=== PATIENT | female | born 1970 | race Caucasian/White ===

== ENCOUNTER 2017-01-18 13:46 | Emergency (ER) | payer OTHER ==
[2017-01-18] MEDS ORDERED: SODIUM CHLORIDE 0.9% 1000 ML INFUS.BAG IV ONE (14:37)
[2017-01-18] MEDS ORDERED: METOCLOPRAMIDE HCL INJECTION 10 MG/2 ML VIAL IVPB ONE (14:37)
[2017-01-18] MEDS ORDERED: KETOROLAC TROMETHAMINE 30 MG/1 ML VIAL IVPUSH ONE (14:37)
[2017-01-18] MEDS ORDERED: KETOROLAC TROMETHAMINE 30 MG/1 ML VIAL ONE (14:38)
[2017-01-18] MEDS ORDERED: METOCLOPRAMIDE HCL INJECTION 10 MG/2 ML VIAL ONE (14:38)
[2017-01-18 14:47] VITALS: TEMP 97.9; BMI 25.0
[2017-01-18 14:51] LABS: BASOPHIL 0.9 % (0-2.0); EOSINOPHIL 1.6 % (0-4.5); MCH 26.8 pg (25.7-33.7); MCHC 31.8 g/dl (32.0-36.0); MEAN CELL VOLUME 84.2 fl (80-96); MEAN PLT VOLUME 8.3 fl (7.5-11.1); NEUTROPHILS 65.6 % (42.8-82.8); PLATELET COUNT 253 K/MM3 (134-434); RDW 15.1 % (11.6-15.6); WHITE BLOOD COUNT 3.7 K/mm3 (4.0-10.0)
[2017-01-18 15:14] LABS: ALBUMIN 3.8 g/dl (3.4-5.0); ANION GAP 8 (8-16); BILIRUBIN,TOTAL 0.4 mg/dL (0.2-1.0); CO2 27 mmol/L (21-32); COCKROFT - GAULT 123.1565; CREATININE 0.6 mg/dL (0.55-1.02); GLUCOSE,RANDOM 100 mg/dL (74-106); SGOT/AST 25 U/L (15-37); SGPT/ALT 28 U/L (12-78); TOT PROT 7.6 g/dl (6.4-8.2)
[2017-01-18 15:15] LABS: ALK PHOS 80 U/L (45-117)
--- NOTE | 2017-01-18 16:20 | PDOC ---
History of Present Illness - General Chief Complaint: Nausea/Vomiting Stated Complaint: VOMITING/HEADACHE Time Seen by Provider: 01/18/17 14:14 - History of Present Illness Initial Comments: 01/18/17 16:14 CHIEF COMPLAINT: vomiting/diarrhea HISTORY OF PRESENT ILLNESS: 46 yo F with hx of hypothyroidism presents to ED with vomiting and headache since yesterday. She states "I ate shrimp last night , and afterwards I started to feel bad." She states that she vomiting approximately 4 times and today she has a headache. She denies any fever, chills, diarrhea, rectal bleeding, or urinary symptoms. LMP was two weeks ago, last bowel movement was yesterday and was normal. No recent travel or sick contacts. PAST MEDICAL HISTORY: as per HPI FAMILY HISTORY: Denies SOCIAL HISTORY: Denies tobacco, alcohol, illicit drug use. SURGICAL HISTORY: Denies ALLERGIES: No known drug allergies REVIEW OF SYSTEMS General/Constitutional: Denies fever or chills. Denies weakness, weight change. HEENT: Denies change in vision. Denies ear pain or discharge. Denies sore throat. Cardiovascular: Denies chest pain or shortness of breath. Respiratory: Denies cough, wheezing, or hemoptysis. Gastrointestinal: Vomiting last night. Denies diarrhea or constipation. Denies rectal bleeding. Genitourinary: Denies dysuria, frequency, or change in urination. Musculoskeletal: Denies joint or muscle swelling or pain. Denies neck or back pain. Skin and breasts: Denies rash or easy bruising. PHYSICAL EXAM General Appearance: Well-appearing, appropriately dressed. No apparent distress. HEENT: EOMI, PERRLA, normal ENT inspection, normal voice, TMs normal, pharynx normal. No conjunctival pallor. No photophobia, scleral icterus. Respiratory/Chest: Lungs CTAB. Cardiovascular: RRR. S1, S2. Gastrointestinal/Abdominal: Normal bowel sounds. Abdomen soft, non-distended. No tenderness or rebound tenderness. No organomegaly, pulsatile mass, guarding , hernia, hepatomegaly, splenomegaly. Musculoskeletal/Extremities: Normal inspection. FROM of all extremities, normal capillary refill. Pelvis Stable. No CVA tenderness. No tenderness to extremities, pedal edema, swelling, erythema or deformity. Integumentary: Appropriate color, dry, warm. No cyanosis, erythema, jaundice or rash Neurologic: set up mechanic automatic line II-XII intact. Fully oriented, alert. Appropriate mood/affect. Motor strength 5/5. No appreciable EOM palsy, facial droop or sensory deficit. Past History - Past Medical History Allergies/Adverse Reactions: Allergies Allergy/AdvReac Type Severity Reaction Status Date / Time No Known Allergies Allergy Verified 01/18/17 14:22 Home Medications: Ambulatory Orders Levothyroxine [Synthroid -] 125 mcg PO DAILY 01/18/17 Ondansetron [Zofran *Odt*] 8 mg SL TID PRN #12 od.tablet 01/18/17 Hypercholesterolemia: Yes Thyroid Disease: Yes (HYPO) - Psycho/Social/Smoking Cessation Hx Suicidal Ideation: No Smoking History: Smoker current status UNK *Physical Exam - Vital Signs Last Vital Signs Temp Pulse Resp BP Pulse Ox 97.9 F 87 17 140/83 99 01/18/17 14:22 01/18/17 14:22 01/18/17 14:22 01/18/17 14:22 01/18/17 14:22 ED Treatment Course - LABORATORY CBC & Chemistry Diagram: 01/18/17 14:40 01/18/17 14:40 - ADDITIONAL ORDERS Additional order review: Laboratory Results 01/18/17 14:40 Sodium 141 Potassium 4.2 Chloride 106 Carbon Dioxide 27 Anion Gap 8 BUN 8 Creatinine 0.6 Creat Clearance w eGFR > 60 Random Glucose 100 Calcium 9.0 Total Bilirubin 0.4 AST 25 ALT 28 Alkaline Phosphatase 80 Total Protein 7.6 Albumin 3.8 Lipase 99 01/18/17 14:40 RBC 4.27 MCV 84.2 MCHC 31.8 L RDW 15.1 MPV 8.3 Neutrophils % 65.6 Lymphocytes % 22.5 Monocytes % 9.4 Eosinophils % 1.6 Basophils % 0.9 - Medications Given in the ED: ED Medications Discontinued Medications Generic Name Dose Route Start Last Admin Trade Name Freq PRN Reason Stop Dose Admin Ketorolac Tromethamine 30 mg 01/18/17 14:37 01/18/17 14:45 Toradol Injection - IVPUSH 01/18/17 14:38 30 mg ONCE ONE Administration Metoclopramide HCl 10 mg 01/18/17 14:37 01/18/17 14:45 Reglan Injection - IVPB 01/18/17 14:38 10 mg ONCE ONE Administration Sodium Chloride 1,000 ml 01/18/17 14:37 01/18/17 14:45 Normal Saline - IV 01/18/17 14:38 1,000 ml ONCE ONE Administration Medical Decision Making - Medical Decision Making 01/18/17 16:18 46 yo F with hx of hypothyroidism presents to ED with vomiting and headache. Abdomen non tender on exam. -CBC, CMP, lipase -IVF, Zofran, Pepcid -UA, UCx, Urine 01/18/17 16:21 Patient reassessed, states she is feeling better at this time. Exam remains unremarkable. Will discharge home with Zofran po and follow up with PCP. Advised patient to take medication as prescribed and f/u with PCP within the next week. Advised patient of signs and symptoms for return to ER. Patient verbalized understanding and agrees to plan. *DC/Admit/Observation/Transfer Diagnosis at time of Disposition: Acute gastroenteritis - Discharge Dispostion Disposition: HOME Condition at time of disposition: Improved Admit: No - Prescriptions Prescriptions: Ondansetron [Zofran *Odt*] 8 mg SL TID PRN #12 od.tablet PRN Reason: Nausea And/Or Vomiting - Referrals Referrals: Bowen South MD [Primary Care Provider] - - Patient Instructions Printed Discharge Instructions: DI for Vomiting -- Adult Additional Instructions: Please take medication as prescribed and follow up with Dr. South this week. If you experience any persistent vomiting, diarrhea, fever, chills, shortness of breath palpitations, or any new or worsening symptoms, please return to the ER.
[2017-01-18] MEDS ORDERED: FAMOTIDINE 20 MG/50 ML IVPB 50 ML IVPB ONE ×2 (16:21→16:39)
[2017-01-18 16:25] LABS: URINE APPEARANCE CLEAR; URINE BILIRUBIN NEGATIVE (NEGATIVE); URINE BLOOD NEGATIVE (NEGATIVE); URINE COLOR STRAW; URINE GLUCOSE (UA) NEGATIVE (NEGATIVE); URINE KETONE TRACE (NEGATIVE); URINE LEUK ESTERASE NEGATIVE (NEGATIVE); URINE NITRITE NEGATIVE (NEGATIVE); URINE PROTEIN NEGATIVE (NEGATIVE); URINE UROBILINOGEN NEGATIVE E.U./dl (0.2-1.0)
--- NOTE | 2017-01-18 16:28 | PDOC ---
*Physical Exam - Vital Signs Last Vital Signs Temp Pulse Resp BP Pulse Ox 97.9 F 87 17 140/83 99 01/18/17 14:22 01/18/17 14:22 01/18/17 14:22 01/18/17 14:22 01/18/17 14:22 ED Treatment Course - LABORATORY CBC & Chemistry Diagram: 01/18/17 14:40 01/18/17 14:40 - ADDITIONAL ORDERS Additional order review: Laboratory Results 01/18/17 14:40 Sodium 141 Potassium 4.2 Chloride 106 Carbon Dioxide 27 Anion Gap 8 BUN 8 Creatinine 0.6 Creat Clearance w eGFR > 60 Random Glucose 100 Calcium 9.0 Total Bilirubin 0.4 AST 25 ALT 28 Alkaline Phosphatase 80 Total Protein 7.6 Albumin 3.8 Lipase 99 01/18/17 14:40 RBC 4.27 MCV 84.2 MCHC 31.8 L RDW 15.1 MPV 8.3 Neutrophils % 65.6 Lymphocytes % 22.5 Monocytes % 9.4 Eosinophils % 1.6 Basophils % 0.9 - Medications Given in the ED: ED Medications Discontinued Medications Generic Name Dose Route Start Last Admin Trade Name Oliq PRN Reason Stop Dose Admin Ketorolac Tromethamine 30 mg 01/18/17 14:37 01/18/17 14:45 Toradol Injection - IVPUSH 01/18/17 14:38 30 mg ONCE ONE Administration Metoclopramide HCl 10 mg 01/18/17 14:37 01/18/17 14:45 Reglan Injection - IVPB 01/18/17 14:38 10 mg ONCE ONE Administration Sodium Chloride 1,000 ml 01/18/17 14:37 01/18/17 14:45 Normal Saline - IV 01/18/17 14:38 1,000 ml ONCE ONE Administration Medical Decision Making - Medical Decision Making 01/18/17 16:27 Patient seen and evaluated with the nurse practitioner. I agree with the overall evaluation, assessment, and management with the following summary of visit: 46-year-old female resents with nausea/vomiting/diarrhea after eating shrimp last night. No other travel, sick contacts, recent antibiotics. No persistent abdominal pain. Workup reveals white count 3.7 with normal differential, normal chemistries. Abdomen is benign without peritoneal findings, symptoms improved after IV fluids and antiemetics. Likely discharge on antiemetics, understands return criteria. *DC/Admit/Observation/Transfer Diagnosis at time of Disposition: Acute gastroenteritis - Discharge Dispostion Disposition: HOME Condition at time of disposition: Improved - Prescriptions Prescriptions: Ondansetron [Zofran *Odt*] 8 mg SL TID PRN #12 od.tablet PRN Reason: Nausea And/Or Vomiting - Referrals Referrals: Bowen South MD [Primary Care Provider] - - Patient Instructions Printed Discharge Instructions: DI for Food Poisoning, DI for Vomiting -- Adult Additional Instructions: Please take medication as prescribed and follow up with Dr. South this week. If you experience any persistent vomiting, diarrhea, fever, chills, shortness of breath palpitations, or any new or worsening symptoms, please return to the ER.
[2017-01-18 17:37] VITALS: BP 128/108; PULSE 86
== END 2017-01-18 17:30 | disposition home or self-care (01) ==
LOC: JER 13:46
PROC: 3E033GC Introduction of Other Therapeutic Substance into Peripheral Vein, Percutaneous Approach (ICD-10-PCS; principal; 2017-01-18)
PROC: 3E033GC Introduction of Other Therapeutic Substance into Peripheral Vein, Percutaneous Approach (ICD-10-PCS; 2017-01-18)
PROC: 3E0333Z Introduction of Anti-inflammatory into Peripheral Vein, Percutaneous Approach (ICD-10-PCS; 2017-01-18)
DX: K52.9 Noninfective gastroenteritis and colitis, unspecified (principal)
CPT/HCPCS: 36415; 80053; 81003; 83690; 84703; 85025; 87086; 99283-25

== ENCOUNTER 2023-03-10 23:39 | Emergency (ER) | payer OTHER ==
[2023-03-10 23:45] VITALS: BP 110/57; PULSE 73; RESP 20; TEMP 98; BMI 28.1
[2023-03-11] MEDS ORDERED: valACYclovir HCL 500 MG TABLET (FP) PO ONE (00:27)
[2023-03-11] MEDS ORDERED: valACYclovir HCL 500 MG TABLET (FP) ONE (00:37)
== END 2023-03-11 00:45 | disposition home or self-care (01) ==
LOC: JERFT 23:39
DX: R21 Rash and other nonspecific skin eruption (principal); B02.9 Zoster without complications
CPT/HCPCS: 99283-25